=== PATIENT | female | born 1970 | race Caucasian/White ===

== ENCOUNTER 2019-09-01 10:21 | Outpatient (CLI) | payer MEDICAID ==
[~2019-09-01] VITALS: Ht 160 cm; Wt 72.6 kg
[2019-09-01] MEDS ORDERED: OMEPRAZOLE40 M1 ORAL (14:53)
[2019-09-01] MEDS ORDERED: ATORVASTATIN CA10 MG ORAL (14:53)
[2019-09-01] MEDS ORDERED: ZYRTEC10 MG ORAL (14:53)
[2019-09-01 14:54] VITALS: BP 123/75
--- NOTE | 2019-09-01 16:30 | Consultation ---
DATE OF CONSULTATION: 09/01/2019 CHIEF COMPLAINT: Referral for colonoscopy, mild constipation, mild GERD. HISTORY OF PRESENT ILLNESS: Most of history is per umbrella cutter. The patient is deaf and mute, so we have some person who helped us talking to her, a nephrology social worker. Apparently, she was referred to us for screening colonoscopy given her age of 49. The patient also had mild constipation and bloating. PAST MEDICAL HISTORY: 1. GERD.. 2. The patient is deaf and mute. 3. Gallstones. 4. Hyperlipidemia. PAST SURGICAL HISTORY: 1. Laparoscopic cholecystectomy. 2. Left ovarian removal. 3. Cystoscopy. MEDICATIONS: 1. Omeprazole. 2. Atorvastatin. 3. Cetirizine. FAMILY HISTORY: Noncontributory. SOCIAL HISTORY: The patient denies tobacco, alcohol, or drug abuse. ALLERGIES: No known allergies. REVIEW OF SYSTEMS: Positive for GERD, constipation, and bloating. PHYSICAL EXAMINATION: VITAL SIGNS: Temperature 97.4, blood pressure 123/79, pulse 80, respirations 20. HEENT: Normocephalic, atraumatic. Sclerae anicteric. NECK: Supple. No evidence of obvious lymphadenopathy. CARDIOVASCULAR: Regular rate and rhythm. Plus S1 and S2. LUNGS: Clear to auscultation bilaterally. ABDOMEN: Soft and nontender. No rebound. No guarding. No peritoneal sign. EXTREMITIES: No cyanosis, no clubbing, no edema. ASSESSMENT AND PLAN: The patient is a 49-year-old female referred to us for screening colonoscopy evaluation. Also, the patient has some mild constipation. The patient says MiraLAX helps her, but she is not taking it every day, so we told her to take the MiraLAX on a daily basis to help us to move her bowels. We are going to go ahead and schedule for colonoscopy when authorization is obtained. Oli Willis M.D. DR: MARY JOB#: [id number] CC:
== END 2019-09-01 12:21 | disposition home or self-care (01) ==
LOC: PAN 10:21
DX: K21.9 Gastro-esophageal reflux disease without esophagitis (principal); K59.00 Constipation, unspecified; E78.5 Hyperlipidemia, unspecified; Z90.49 Acquired absence of other specified parts of digestive tract; Z90.721 Acquired absence of ovaries, unilateral; R14.0 Abdominal distension (gaseous)
CPT/HCPCS: G0463

== ENCOUNTER 2019-10-20 09:21 | Outpatient (CLI) | payer MEDICAID ==
[~2019-10-20 09:21] MED LIST: ATORVASTATIN CA10 MG ORAL; OMEPRAZOLE40 M1 ORAL; ZYRTEC10 MG ORAL
[2019-10-20 09:22] VITALS: BP 108/75
--- NOTE | 2019-10-20 10:15 | General Progress Note ---
Assessment/Plan Assessment/Plan: s/p colonpscopy no polyps + hemorrhoids miralax daily repeat colonoscopy in 5 years Subjective ROS Limited/Unobtainable: No Allergies: Coded Allergies: No Known Allergies (Unverified , 09/01/19) Objective Last 24 Hour Vital Signs Date Time Temp Pulse Resp B/P (MAP) Pulse Ox O2 Delivery O2 Flow Rate FiO2 10/20/19 09:22 96.8 80 16 108/75 (86) 96 General Appearance: alert EENT: normal ENT inspection Neck: supple Cardiovascular: normal rate Respiratory/Chest: decreased breath sounds Abdomen: normal bowel sounds, non tender, soft Extremities: non-tender Oli Willis MD Oct 20, 2019 10:15
== END 2019-10-20 11:21 | disposition home or self-care (01) ==
LOC: PAN 09:21
DX: K64.9 Unspecified hemorrhoids (principal)
CPT/HCPCS: 99212